=== PATIENT | male | born 1975 | race Caucasian/White ===

== ENCOUNTER 2019-08-26 08:59 | Emergency (ER) | payer OTHER ==
[~2019-08-26] VITALS: Ht 193 cm; Wt 102.1 kg
--- NOTE | ~2019-08-26 | PROC ---
[address] [address] PROCEDURE REPORT Name: MERLY REID Room: [facility] Salome#: [id number] Admission: 08/26/19 Attend Phys: Discharge: 08/26/19 Date of : 75 Report #: [id number] THIS REPORT FOR: //name// For GI report, please see the Provation report in Perceptive 7 content. By: 1456Medical Records Staff YINKA /JEAN
[2019-08-26 10:13] LABS: HEMATOCRIT 45.6 % (42.0-52.0); HEMOGLOBIN 15.6 gm/dL (14.0-18.0); MCH 29.8 pg (26.0-34.0); MCHC 34.2 g/dL (28.0-37.0); MCV 87.2 fL (80.0-100.0); RBC 5.23 mil/uL (4.50-6.00); RDW-CV 12.9 % (10.5-14.5); WBC 8.1 thou/uL (4.0-11.0)
[2019-08-26 10:24] LABS: CALCIUM 8.9 mg/dL (8.5-10.1); CREATININE 1.3 mg/dL (0.6-1.3); POTASSIUM 4.2 mmol/L (3.5-5.1)
[2019-08-26 10:34] LABS: ALBUMIN 3.7 g/dL (3.4-5.0); TOTAL BILIRUBIN 0.7 mg/dL (<0.1-1.0); TOTAL PROTEIN 7.9 g/dL (6.4-8.2)
[2019-08-26 13:52] VITALS: BP 122/84
--- NOTE | 2019-08-29 10:07 | PATH ---
[place] [address] PATHOLOGY RPT PROCEDURE Name: FITO LU Room: [facility] CHEPE Mcmahon#: [id number] Admission: 08/26/19 Date of : 75 Discharge: 08/26/19 Report #: [id number] Path Case #: [id number] [facility] Accession Number: [id number] . 01 Material submitted: . esophagus - ESOPHAGEAL BIOPSIES . 01 Clinical history: . Rule out eosinophilic esophagitis . 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 See comment. (RAVI:ana rosa; 08/28/2019) MBDianna 08/28/2019 1622 Local . 02 Comment: The biopsies show a variable presence of eosinophils in the esophageal tissues ranging from minimal in some areas to well over 30 per high power field in others and basilar cell hyperplasia is prominent. Small fragments of benign skeletal muscle are seen in association with necrotic inflammatory debris suggesting food impaction. (RAVI:ana rosa; 08/28/2019) . 02 Electronically signed: . Jin Carson MD, Pathologist NPI- [id number] . 01 Gross description: . Received in formalin labeled "Fito Lu, esophagus biopsies," are multiple segments of tom soft tissue measuring 0.6 x 0.5 x 0.1 cm in aggregate dimensions. The specimen is filtered and entirely submitted in cassette A1. (TSD; 08/27/2019) TOB/TOB 08/27/2019 1853 Local . 02 Pathologist provided ICD-10: K20.9, K63.3 . 02 CPT . 366847 Specimen Comment: A courtesy copy of this report has been sent to Specimen Comment: [phone], . Specimen Comment: Report sent to / [place] [address] PATHOLOGY RPT PROCEDURE Name: FITO LU Room: [facility] Saloem#: [id number] Admission: 08/26/19 Date of : 75 Discharge: 08/26/19 Report #: [id number] Path Case #: [id number] Specimen Comment: Report sent to Performed at: [address] [facility] [address], [place], [place] [id number] MD Callum Ferrari MD Phone: [phone] Performed at: [address] [facility] [address] [address], [place], [place] [id number] MD Jin Carson MD Phone: [phone]
--- NOTE | 2019-08-31 11:18 | CON ---
[address] [address] CONSULTATION Name: MERLY REID Room: [facility]#: [id number] Admission: 08/26/19 Attend Phys: Discharge: 08/26/19 Date of : 75 Report #: [id number] THIS REPORT FOR: //name// CC: NIHARIKA physician/PCP Zion Tran DATE OF SERVICE: 08/26/2019 HISTORY OF PRESENT ILLNESS: This is a pleasant 43-year-old gentleman with prior history of food bolus impaction presented with similar complaints. The patient reports he had something to eat last night around 10:00 p.m. and has not been able to swallow solids or liquids since then. He has tried to spit up everything including his saliva until this a.m. and he decided to present to the hospital. The patient denies any chest pain, difficulty breathing, hematemesis, or other alarm symptoms. PAST MEDICAL HISTORY: Nonsignificant. PAST SURGICAL HISTORY: Nonsignificant. FAMILY HISTORY: No family history of esophageal, gastric, or colonic malignancies. REVIEW OF SYSTEMS: Comprehensive 10-point review of systems is negative except for what was mentioned in the HPI. PHYSICAL EXAMINATION: VITAL SIGNS: The patient's blood pressure is 122/84, temperature 36.3, pulse rate 72, respiratory rate 15. GENERAL: He is alert, awake, oriented x 3. HEENT: Pupils are equal, round, and reactive to light and accommodation. Mucous membranes are moist. There is no congestion. LUNGS: Clear to auscultation bilaterally. CARDIOVASCULAR: Rate and rhythm regular, S1 and S2 present. ABDOMEN: There is no guarding or rigidity. EXTREMITIES: Warm, well perfused. There is no edema. SKIN: Warm and dry. ASSESSMENT AND PLAN: This is a pleasant 43-year-old gentleman presenting with difficulty swallowing secondary to food bolus impaction. We will proceed with EGD and make further recommendations based on the results of the EGD. <ELECTRONICALLY SIGNED> By: Walt Beebe MD 08/31/19 1118 [id number] 09Walt Beebe MD /nt
== END 2019-08-26 12:45 | disposition still patient (30) ==
LOC: M.GI 08:59 → M.ERS 08:59
PROVIDERS: Emergency Medicine Emergency Medical Services
DX: T17.228A Food in pharynx causing other injury, initial encounter (principal); R11.2 Nausea with vomiting, unspecified; Y92.89 Other specified places as the place of occurrence of the external cause